=== PATIENT | female | born 2000 | race Hispanic/Latino ===

== ENCOUNTER 2025-01-29 17:28 | Emergency (ER) | payer OTHER ==
[~2025-01-29] VITALS: Ht 154.9 cm; Wt 86.2 kg
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
[2025-01-29] MEDS ORDERED: IBUP-2077 PO (18:25)
[2025-01-29 18:29] VITALS: BP 119/83; PULSE 71; RESP 19; TEMP 98.3; O2SAT 99
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
== END 2025-01-29 18:30 | disposition home or self-care (01) ==
LOC: EDH 17:28
DX: S20.219A Contusion of unspecified front wall of thorax, initial encounter (principal); S46.912A Strain of unspecified muscle, fascia and tendon at shoulder and upper arm level, left arm, initial encounter; V89.2XXA Person injured in unspecified motor-vehicle accident, traffic, initial encounter; Y93.89 Activity, other specified; Y92.89 Other specified places as the place of occurrence of the external cause; Y99.8 Other external cause status
CPT/HCPCS: 71045; 73030; 99284